=== PATIENT | male | born 1975 | race Two or more races ===

== ENCOUNTER 2024-10-27 22:01 | Inpatient (IN) | payer MEDICAID, OTHER ==
[~2024-10-27] VITALS: Ht 157.5 cm; Wt 64.1 kg
[2024-10-27] MEDS: ACETAMINOPHEN ES 500 MG TABLET PO ONE (23:00)
[2024-10-27] MEDS: VANCOMYCIN 1 GM in IV D5W 250 ML IV ONE (23:00)
[2024-10-27] MEDS: CEFEPIME 1 GM in IV D5W 50 ML IV ONE (23:00)
[2024-10-27] MEDS: IV NS 0.9% 1,000 ML BAG IV ONE (23:00)
[2024-10-27 23:27] LABS: BASOPHILS # (AUTO) 0.1 K/uL (0.0-0.2); BASOPHILS % (AUTO) 0.5 % (0.0-2.0); EOSINOPHILS % (AUTO) 0.2 % (0.0-6.0); HEMATOCRIT 31 % (39-51); HEMOGLOBIN 10.5 g/dL (13.5-17.5); LYMPHOCYTES # (AUTO) 0.8 K/uL (0.8-4.8); MEAN CORPUSCULAR HEMOGLOBIN 31 PG (26.0-33.0); MEAN CORPUSCULAR HGB CONC 33 g/dl (31.0-36.0); MEAN CORPUSCULAR VOLUME 94 fL (80-96); MONOCYTES # (AUTO) 1.2 K/uL (0.1-1.30); MONOCYTES % (AUTO) 8.8 % (2.0-12.0); NEUTROPHILS # (AUTO) 11.3 K/uL (1.8-8.9); NEUTROPHILS % (AUTO) 84.5 % (43.0-81.0); PLATELET COUNT (AUTO) 248 K/uL (150-450); RED BLOOD CELL COUNT(AUTO) 3.34 MIL/uL (4.5-6.0); RED CELL DISTRIBUTION WIDTH 15.3 % (11.5-15.0); WHITE BLOOD COUNT (AUTO) 13.3 K/uL (4.3-11.0)
[2024-10-27 23:31] LABS: CALCIUM, SERUM 8.3 mg/dL (8.5-10.1); CREATININE 1.1 mg/dL (0.6-1.3)
[2024-10-27 23:36] LABS: INR 1.09 (0.91-1.10); PARTIAL THROMBOPLASTIN TIME 28.2 SEC (24.3-34.3); PROTHROMBIN TIME 11.5 SECS (9.2-11.1)
[2024-10-27 23:37] LABS: ALBUMIN 2.6 g/dL (3.4-5.0); BILIRUBIN,DIRECT 0.4 mg/dL (0.0-0.2); BILIRUBIN,TOTAL 0.8 mg/dL (0.2-1.0); TOTAL PROTEIN, SERUM 7.6 g/dL (6.4-8.2)
[2024-10-27 23:38] LABS: LACTIC ACID 1.9 mmol/L (0.4-2.0)
[2024-10-27 23:50] LABS: NEUTROPHILS % (MANUAL) 82 (42-76)
[2024-10-27 23:51] LABS: BAND % (MANUAL) 2 % (0.0-5.0); EOSINOPHILS % (MANUAL) 1 % (0-4); LYMPHOCYTES % (MANUAL) 11 % (16-48); MONOCYTES % (MANUAL) 4 % (0-11.0); PLATELET ESTIMATE ADEQUATE
[2024-10-27] MEDS ORDERED: VANCOMYCIN 1 GM /D5W 250 ML PB IV ONE (23:59)
[2024-10-27] MEDS ORDERED: ACETAMINOPHEN ES 500 MG TABLET ONE (23:59)
[2024-10-27] MEDS ORDERED: CEFEPIME 1 GM VIAL ONE (23:59)
[2024-10-28] MEDS ORDERED: MAGNESIUM HYDROXIDE 30 ML UDC PO PRN (01:30)
[2024-10-28] MEDS ORDERED: ACETAMINOPHEN 325 MG TABLET PO PRN (01:30)
[2024-10-28] MEDS ORDERED: MAG HYDROX/AL HYDROX/SIMETH 30 ML UDC PO PRN (01:30)
[2024-10-28] MEDS ORDERED: ONDANSETRON HCL/PF 4 MG/2 ML VIAL IVP PRN (01:30)
[2024-10-28] MEDS ORDERED: MORPHINE SULFATE INJ 2 MG/ML DISP.SYRIN IV PRN (01:30)
[2024-10-28] MEDS ORDERED: Z GUARD REMEDY 4 OZ OINT TP PRN (01:30)
[2024-10-28] MEDS ORDERED: DEXTROSE 50%-WATER 50 ML DISP.SYRIN IV PRN (02:30)
[2024-10-28] MEDS: IV LR 1000 ML 1,000 ML IV SCH (02:58)
[2024-10-28 05:14] VITALS: BP 140/76; TEMP 98.6; O2SAT 98
[2024-10-28] MEDS: BLOOD SUGAR DIAGNOSTIC 1 EACH STRIP IN SCH (05:34)
[2024-10-28 07:00] LABS: EOSINOPHILS # (AUTO) 0.1 K/uL (0.0-0.7); EOSINOPHILS % (AUTO) 0.5 % (0.0-6.0); HEMATOCRIT 29 % (39-51); HEMOGLOBIN 9.9 g/dL (13.5-17.5); LYMPHOCYTES % (AUTO) 9.2 % (20.0-44.0); MEAN CORPUSCULAR HEMOGLOBIN 32 PG (26.0-33.0); MEAN CORPUSCULAR HGB CONC 34 g/dl (31.0-36.0); MEAN CORPUSCULAR VOLUME 94 fL (80-96); MONOCYTES # (AUTO) 1.4 K/uL (0.1-1.30); MONOCYTES % (AUTO) 12.2 % (2.0-12.0); NEUTROPHILS # (AUTO) 8.8 K/uL (1.8-8.9); NEUTROPHILS % (AUTO) 78.1 % (43.0-81.0); PLATELET COUNT (AUTO) 207 K/uL (150-450); RED BLOOD CELL COUNT(AUTO) 3.08 MIL/uL (4.5-6.0); RED CELL DISTRIBUTION WIDTH 15.2 % (11.5-15.0); WHITE BLOOD COUNT (AUTO) 11.3 K/uL (4.3-11.0)
[2024-10-28 07:22] LABS: CALCIUM, SERUM 7.6 mg/dL (8.5-10.1); CREATININE 0.9 mg/dL (0.6-1.3); MAGNESIUM 1.6 mg/dL (1.8-2.4); PHOSPHORUS 3.2 mg/dL (2.5-4.9); POTASSIUM 3.5 mmol/L (3.5-5.1)
[2024-10-28 08:00] VITALS: BP 108/75; TEMP 98; O2SAT 100
[2024-10-28] MEDS: CEFEPIME 2 GM in IV D5W 100 ML IV SCH (08:10)
[2024-10-28 08:25] LABS: THYROID STIMULATING HORMONE 6.75 uIU/mL (0.358-3.74)
[2024-10-28] MEDS ORDERED: METF-442 PO (09:28)
[2024-10-28] MEDS: Magnesium 1GM/D5W 100ML PREMIX 100 ML IV SCH (10:59)
[2024-10-28] MEDS: PANTOPRAZOLE 40 MG VIAL IV SCH (10:59)
[2024-10-28] MEDS ORDERED: BUPIVACAINE 0.25% 75 MG/30 ML VIAL ONE (11:53)
[2024-10-28 12:00] VITALS: BP 131/79; TEMP 99.1; O2SAT 99
[2024-10-28 12:53] LABS: APPEARANCE,URINE CLEAR (CLEAR); BILIRUBIN,URINE NEGATIVE (NEGATIVE); BLOOD, URINE NEGATIVE Ery/uL (NEGATIVE); COLOR,URINE YELLOW (YELLOW); KETONES,URINE NEGATIVE (NEGATIVE); LEUKOCYTE ESTERASE ,URINE NEGATIVE (NEGATIVE); NITRITE, URINE NEGATIVE (NEGATIVE); PROTEIN,URINE NEGATIVE (NEGATIVE); UGLUCOSE NEGATIVE (NEGATIVE); UROBILINOGEN,URINE 0.2 EU/dL (0.2)
[2024-10-28] MEDS ORDERED: FENTANYL PF 250MCG/5ML AMPUL ONE (13:54)
[2024-10-28] MEDS ORDERED: dexaMETHasone SOD PHOSPHATE 1 ML ONE (14:59)
[2024-10-28] MEDS ORDERED: ANESTHESIA TRAY IN PYXIS 1 EA TRAY MC ONE (15:10)
[2024-10-28] MEDS: dexaMETHasone SOD PHOSPHATE 10 MG/ML VIAL IV ONE (15:25)
[2024-10-28 16:00] VITALS: BP 125/74; TEMP 98.2; O2SAT 97
[2024-10-28] MEDS: IV NS 0.9% 1,000 ML BAG IV SCH (17:12)
[2024-10-28 18:05] LABS: CALCIUM, SERUM 7.5 mg/dL (8.5-10.1); CREATININE 0.8 mg/dL (0.6-1.3); POTASSIUM 4.2 mmol/L (3.5-5.1)
[2024-10-28] MEDS: INSULIN REGULAR, HUMAN 100 UNIT/ML 3 ML VIAL SQ PRN (18:16)
[2024-10-28 20:00] VITALS: BP 134/81; TEMP 98.4; O2SAT 99
[2024-10-28] MEDS ORDERED: CEFEPIME 1 GM in IV D5W 50 ML IV SCH (23:00)
[2024-10-29] VITALS: BP 109/69; TEMP 98.1; O2SAT 95
[2024-10-29 04:00] VITALS: BP 144/84; TEMP 98.1; O2SAT 99
[2024-10-29 06:34] LABS: BASOPHILS % (AUTO) 0.1 % (0.0-2.0); EOSINOPHILS % (AUTO) 0.1 % (0.0-6.0); HEMATOCRIT 30 % (39-51); HEMOGLOBIN 10.1 g/dL (13.5-17.5); LYMPHOCYTES # (AUTO) 0.4 K/uL (0.8-4.8); MEAN CORPUSCULAR HEMOGLOBIN 32 PG (26.0-33.0); MEAN CORPUSCULAR HGB CONC 34 g/dl (31.0-36.0); MEAN CORPUSCULAR VOLUME 94 fL (80-96); MONOCYTES # (AUTO) 0.9 K/uL (0.1-1.30); MONOCYTES % (AUTO) 6.3 % (2.0-12.0); NEUTROPHILS # (AUTO) 12.5 K/uL (1.8-8.9); NEUTROPHILS % (AUTO) 90.5 % (43.0-81.0); PLATELET COUNT (AUTO) 246 K/uL (150-450); RED CELL DISTRIBUTION WIDTH 15.9 % (11.5-15.0); WHITE BLOOD COUNT (AUTO) 13.8 K/uL (4.3-11.0)
[2024-10-29 07:57] LABS: CALCIUM, SERUM 8.2 mg/dL (8.5-10.1); CREATININE 0.8 mg/dL (0.6-1.3); MAGNESIUM 1.8 mg/dL (1.8-2.4); PHOSPHORUS 3.3 mg/dL (2.5-4.9); POTASSIUM 4.7 mmol/L (3.5-5.1)
[2024-10-29 08:00] VITALS: BP 110/77; TEMP 98.3; O2SAT 98
[2024-10-29 08:00] LABS: THYROID STIMULATING HORMONE 0.86 uIU/mL (0.358-3.74)
[2024-10-29] MEDS: PANTOPRAZOLE 40 MG TABLET.DR PO SCH (08:53)
[2024-10-29 12:00] VITALS: BP 111/73; TEMP 98.1; O2SAT 98
[2024-10-29 15:27] LABS: NEUTROPHILS % (MANUAL) 90 (42-76)
[2024-10-29 15:28] LABS: ANISOCYTOSIS 1+; EOSINOPHILS % (MANUAL) 1 % (0-4); LYMPHOCYTES % (MANUAL) 3 % (16-48); MONOCYTES % (MANUAL) 6 % (0-11.0); PLATELET ESTIMATE ADEQUATE
[2024-10-29 16:00] VITALS: BP 134/73; TEMP 97.8; O2SAT 98
[2024-10-29] MEDS: VANCOMYCIN 750 MG in IV D5W 250 ML IV SCH (18:06)
[2024-10-29 20:00] VITALS: BP 107/67; TEMP 97.9; O2SAT 96
== END 2024-10-29 23:10 | disposition short-term general hospital (02) | DRG 854 ==
LOC: ER 22:12 → TELE1 10-28 02:07
PROC: 0QBH0ZZ Excision of Left Tibia, Open Approach (ICD-10-PCS; principal; 2024-10-28 13:00)
DX: A41.9 Sepsis, unspecified organism (principal); E87.1 Hypo-osmolality and hyponatremia; L97.929 Non-pressure chronic ulcer of unspecified part of left lower leg with unspecified severity; S82.842A Displaced bimalleolar fracture of left lower leg, initial encounter for closed fracture; E11.9 Type 2 diabetes mellitus without complications; F20.9 Schizophrenia, unspecified; E83.42 Hypomagnesemia; M89.8X9 Other specified disorders of bone, unspecified site; W01.0XXA Fall on same level from slipping, tripping and stumbling without subsequent striking against object, initial encounter; Y92.512 Supermarket, store or market as the place of occurrence of the external cause; S93.05XA Dislocation of left ankle joint, initial encounter; E87.6 Hypokalemia; Z53.29 Procedure and treatment not carried out because of patient's decision for other reasons; Z79.84 Long term (current) use of oral hypoglycemic drugs; D64.9 Anemia, unspecified
CPT/HCPCS: 36415; 71045-TC; 73590-TC; 73610-TC; 73630-TC; 73700-TC; 80048-TC; 80061-TC; 80076-TC; 82962-TC; 83605-TC; 83735-TC; 83935-TC; 84100-TC; 84300-TC; 84443-TC; 84550-TC; 85025-TC; 85730-TC; 86850-TC; 87040-TC; 87086-TC; 93307-TC; 97110-TC; 97116-TC; 97530-TC; A4217; A4223; A6402; A6407; G0378; J0692; J1100; J1815; J2470; J3010; J3370; J3371; J3475; J3490; J7030; J7060; J7120